=== PATIENT | female | born 2000 | race Caucasian/White ===

== ENCOUNTER 2020-05-12 03:08 | Inpatient (IN) | payer BC ==
[2020-05-12] MEDS ORDERED: Propofol 500 MG/50 ML VIAL ONE (03:28)
[2020-05-12] MEDS ORDERED: Propofol 1,000 MG/100 ML VIAL IV ONE (03:30)
[2020-05-12 03:32] LABS: Actual Bicarbonate (HCO3a) 24.7 mEq/L (22-28); Analyzer IN Cardio ER; Base Excess (BEa) -1.7 mEq/L (-2.0 to +3.0); CO2 Tension 48.5 mmHg (35.0-45.0); Calcium, Ionized (arterial) 1.11 mmol/L (1.12-1.30); Carboxyhemoglobin (COHb) 0.2 gm% (0.0-3.0); Hemoglobin (Hb) 13.1 g/dL (11.4-15.4); O2 Tension (PaO2), arterial 79.9 mmHg (80.0-100.0); Potassium - ABG Lab 3.22 mmol/L (3.70-5.30); pH, Arterial 7.33 (7.35-7.45)
[2020-05-12 03:33] LABS: Puncture Site RR
[2020-05-12 03:34] LABS: ALV-art Gradient 572.475 (0-20)
[2020-05-12 03:39] LABS: #Eosinphils 0.1 thou/uL (0.0-0.7); #Lymphocytes 2.4 thou/uL (1.20-3.40); #Monocytes 0.8 thou/uL (0.11-0.59); #Neutrophils 11.5 thou/uL (1.40-6.50); %Basophils 0.1 % (0.0-1.0); %Eosinophils 0.6 % (0.0-10.0); %Lymphocytes 15.9 % (28.0-48.0); %Monocytes 5.6 % (0.0-4.0); %Neutrophils 77.8 % (31.0-61.0); Hemoglobin 12.4 g/dL (12.0-16.0); Mean Corpuscular HGB CONC 31.7 g/dL (32.0-36.0); Mean Corpuscular Hemoglobin 26.7 pg (25.0-35.0); Mean Corpuscular Volume 84.2 fL (78.0-98.0); Mean Platelet Volume 6.8 fL (7.4-10.4); Platelet Count 457 thou/uL (130-400); RBC Distribution Width 12.8 % (11.5-14.5); Red Blood Cell (RBC) Count 4.63 mill/uL (4.00-5.20); White Blood Cell (WBC) Count 14.8 thou/uL (4.8-10.8)
[2020-05-12 03:43] LABS: BHCG - Serum Negative (NEGATIVE); Pregs Control Background? CLEAR/WHITE (CLR/WHITE); Pregs Control Bar Appear? YES (CONTROL BAR)
[2020-05-12 04:03] LABS: ALT (SGPT) 31 U/L (8-55); AST (SGOT) 29 U/L (5-34); Albumin 4.2 g/dL (3.5-5.0); Alkaline Phosphatase 115 U/L (40-100); Anion Gap 12 mmol/L (10-20); BUN (Urea Nitrogen) 11 mg/dL (7.0-18.7); Bilirubin, Total 0.3 mg/dL (0.2-1.2); CK (CPK) 176 U/L (29-168); Calc. Creatinine Clearance 0 mL/min (70-130); Calcium 8.2 mg/dL (7.8-10.44); Carbon Dioxide 27 mmol/L (22-29); Chloride 106 mmol/L (98-107); Estimated GFR-MDRD 82; Globulin 3.6 g/dL (2.4-3.5); Glucose 126 mg/dL (70-105); Potassium 3.6 mmol/L (3.5-5.1); Protein, Total 7.8 g/dL (6.0-8.3); Sodium 141 mmol/L (136-145)
[2020-05-12] MEDS ORDERED: Magnesium 2 GM/50 ML BAG (IN WATER) ONE (04:12)
[2020-05-12] MEDS ORDERED: Ventilator Sedation Protocol 1 EACH FS SCH (05:00)
[2020-05-12] MEDS ORDERED: fentaNYL Citrate/PF 2,000 MCG in Sodium Chloride 0.9% 60 ML IV SCH (05:03)
[2020-05-12] MEDS ORDERED: Fentanyl BOLUS 250 ML IVPB PRN (05:03)
[2020-05-12] MEDS ORDERED: Morphine 2 MG/ML SYRINGE SLOW IVP PRN (05:03)
[2020-05-12] MEDS ORDERED: Lorazepam 2 MG/ML VIAL SLOW IVP PRN (05:03)
[2020-05-12] MEDS ORDERED: Propofol BOLUS 1,000 MG/100 ML VIAL IV PRN (05:03)
[2020-05-12] MEDS ORDERED: DISCONTINUE PREVIOUS NARCOTIC PAIN MEDICATIONS AND BENZODIAZEPINES FS SCH (05:03)
[2020-05-12] MEDS ORDERED: Fentanyl 100 MCG/2 ML VIAL ONE ×2 (05:08→05:10)
--- NOTE | 2020-05-12 06:33 | HP ---
CHIEF COMPLAINT: Overdose. HISTORY OF PRESENT ILLNESS: Ms. Carpio is a 19-year-old female with past medical history of bipolar disorder, seizures, was brought to the emergency room, intubated. She was found unresponsive after seizure activity with nausea and vomiting. Apparently, the patient overdosed on Lamictal, ? Bupropion. ED physician discussed the case with Poison Control, who advised to monitor the patient and EKG showed a prolonged QT. The patient was given magnesium. Lab work showed a WBC count of 15.8, hemoglobin of 12.8. ABG showed pH of 7.33, pCO2 of 48, and pO2 of 79 on 100% FiO2. The patient is being admitted to the intensive care unit for further management. PAST MEDICAL HISTORY: 1. Bipolar disorder. 2. Seizures. PAST SURGICAL HISTORY: Unable to obtain. The patient is unresponsive. SOCIAL HISTORY: Unable to obtain. The patient is unresponsive. HOME MEDICATIONS: See home medication reconciliation form for updated medications. FAMILY HISTORY: Unable to obtain due to the patient is being unresponsive. REVIEW OF SYSTEMS: Unable to obtain due to the patient's medical condition. PHYSICAL EXAMINATION: GENERAL: The patient is intubated and sedated. Blood pressure is 140/100, respiratory rate is 14, oxygen saturation is 98%, pulse is 96, and temperature is 95.7. HEAD AND NECK: Normocephalic. NECK: Supple. CHEST: Fair bilateral air entry. HEART: S1 and S2. Regular. ABDOMEN: Soft. Bowel sounds present. NEUROLOGIC: Intubated and sedated. PSYCHIATRIC: Intubated and sedated. EXTREMITIES: No clubbing. No cyanosis. LABORATORY DATA: As mentioned above in history of present illness. ASSESSMENT: 1. Acute respiratory failure. 2. Drug overdose. The patient took Lamictal/bupropion. 3. Seizures. 4. Bipolar disorder. 5. Nausea and vomiting as per records, possible aspiration. PLAN: 1. Admit to ICU. 2. Continue full ventilator support. 3. Consult Pulmonary for ventilator and critical care management. 4. Keep n.p.o. 5. IV fluids. 6. Reconcile home medications. 7. DVT prophylaxis as appropriate. 8. GI prophylaxis. 9. Expected length of stay, 2 midnights or more. Case was discussed with ED physician. Job ID: [id number]
--- NOTE | 2020-05-12 07:39 | RAD ---
Exam: Chest one view HISTORY:Overdose on the appropriate on. Intubated patient. Comparison: None FINDINGS: Lines and tubes: Endotracheal tube at the level of the thoracic inlet. Cardiac silhouette: Normal Aorta: Unremarkable Pulmonary vessels: Normal Costophrenic angles: Clear LUNGS: Right upper lobe consolidation likely due to atelectasis. Pneumothorax: None Osseous abnormalities: None IMPRESSION: 1. Right upper lobe atelectasis. 2. Endotracheal tube at the level of the thoracic inlet.
--- NOTE | 2020-05-12 07:41 | CT ---
CT OF THE CHEST WITHOUT CONTRAST: COMPARISON: Chest x-ray 05/12/2020. HISTORY: Intubated patient. Medical overdose. TECHNIQUE: Multiple contiguous axial images were obtained in a CT of the chest without contrast. Sagittal and c oronal reformats were performed. FINDINGS: Atelectasis is seen in the right upper lobe and left lower lobe. No mass is seen. An endotracheal t ube is seen with its tip in good position by the isabela. The heart is normal in size. No hilar or mediastinal lymphadenopathy are appreciated on this limited noncontrast examination. The visualized subdiaphragmatic structures are unremarkable. The chest wall soft tissues and bones a re unremarkable. IMPRESSION: Right upper and lower lobe atelectasis. POS: EAA
[2020-05-12] MEDS: Propofol 1,000 MG/100 ML VIAL IV PRN ×4 (08:16→21:10)
[2020-05-12 08:35] LABS: Lactic Acid 2.4 mmol/L (0.5-2.2)
[2020-05-12] MEDS: Enoxaparin Sodium 40 MG/0.4 ML SYRINGE SC SCH (08:39)
[2020-05-12] MEDS: Piperacillin/Tazobactam 3.375 GM in Sodium Chloride 0.9% 100 ML IVPB SCH ×4 (08:39→21:11)
[2020-05-12] MEDS: Famotidine/PF 20 mg/2ml Vial SLOW IVP SCH ×2 (08:39→21:10)
[2020-05-12] MEDS: Sodium Chloride 0.9% 1,000 ML IV SCH ×3 (13:16→18:09)
[2020-05-12 13:46] LABS: Acetaminophen Less than 6.0 mcg/mL (10.0-30.0); Salicylate Less than 8.0 mg/dL (15.0-30.0)
--- NOTE | 2020-05-12 14:25 | CON ---
DATE OF CONSULTATION: HISTORY OF PRESENT ILLNESS: Julianna Carpio is a 19-year-old female with a longstanding history of mental problems. She is bipolar. Her mother, stepmother both at the bedside. She apparently took an unknown quantity of lamotrigine and bupropion. She came to the ER where she was confused, nausea, vomiting, uncontrollable. She was intubated, pressured airways. Initially chest x-ray showed her right upper lung was atelectatic. CAT scan confirmed this. PAST MEDICAL HISTORY: Information from her mother says past medical history pertinent for longstanding history of bipolar disorder, hypothyroidism. MEDICATIONS: 1. Bupropion 300 mg once a day. 2. Zoloft 100 mg a day. 3. Synthroid 150 a day. 4. Hydroxyzine 25 three times a day. 5. Lamictal 150 two a day. PREVIOUS SURGERIES: Tubal ligation. ALLERGIES: APPARENTLY NONE. SOCIAL HISTORY: Tobacco, none. Drugs, none. REVIEW OF SYSTEMS: As per the family, negative. Sedation was withheld. She became agitated. PHYSICAL EXAMINATION: VITAL SIGNS: Pulse 97, blood pressure 118/60, saturations 100%, respiratory 17. CHEST: Decreased breath sounds, no wheezing. CARDIAC: Normal S1, S2. No gallops. ABDOMEN: No masses. LABORATORY DATA: White count 05808, H and H are 12 and 39, platelet count is normal. PO2 of 79, pCO2 of . Lytes are normal. Lactic acid normal. IMPRESSION: Status post overdose of Lamictal and bupropion , right upper lung atelectasis probably from aspiration. I agree with present antibiotics, neb treatment, supportive care. We will start weaning tomorrow. She needs inpatient psych care. 45-minute critical time. Job ID: [id number]
[2020-05-12] MEDS ORDERED: risperiDONE 0.25 MG TAB PO SCH (17:30)
[2020-05-12] MEDS: risperiDONE 0.25 MG TAB PO SCH (21:11)
[2020-05-13] MEDS: Propofol 1,000 MG/100 ML VIAL IV PRN ×3 (00:25→07:56)
[2020-05-13] MEDS: Piperacillin/Tazobactam 3.375 GM in Sodium Chloride 0.9% 100 ML IVPB SCH ×4 (02:36→20:01)
[2020-05-13] MEDS: Sodium Chloride 0.9% 1,000 ML IV SCH ×4 (03:20→20:02)
[2020-05-13 04:02] LABS: Band 1 % (5-11); Eosinophils 1 % (0-10); Hemoglobin 10.7 g/dL (12.0-16.0); Hypochromia SLIGHT = 6-15 cells (100X) (0-5/hpf); Lymphocytes 15 % (28-48); MDiff Complete? YES; Mean Corpuscular HGB CONC 32.8 g/dL (32.0-36.0); Mean Corpuscular Hemoglobin 28.1 pg (25.0-35.0); Mean Corpuscular Volume 85.7 fL (78.0-98.0); Mean Platelet Volume 6.8 fL (7.4-10.4); Monocytes 9 % (0-4); Neutrophil 74 % (31-61); Platelet Count 406 thou/uL (130-400); Platelet Morphology Comment Appears Increased; RBC Distribution Width 12.9 % (11.5-14.5); White Blood Cell (WBC) Count 14.1 thou/uL (4.8-10.8)
[2020-05-13 04:05] LABS: Anion Gap 12 mmol/L (10-20); BUN (Urea Nitrogen) 9 mg/dL (7.0-18.7); Calc. Creatinine Clearance 232 mL/min (70-130); Carbon Dioxide 20 mmol/L (22-29); Chloride 107 mmol/L (98-107); Estimated GFR-MDRD Greater than 90; Glucose 120 mg/dL (70-105); Potassium 3.6 mmol/L (3.5-5.1); Sodium 135 mmol/L (136-145)
[2020-05-13 07:04] LABS: Actual Bicarbonate (HCO3a) 21.1 mEq/L (22-28); Base Excess (BEa) -4.1 mEq/L (-2.0 to +3.0); Calcium, Ionized (arterial) 1.15 mmol/L (1.12-1.30); Carboxyhemoglobin (COHb) 0.3 gm% (0.0-3.0); Hemoglobin (Hb) 11.1 g/dL (11.4-15.4); O2 Tension (PaO2), arterial 94.2 mmHg (80.0-100.0); Potassium - ABG Lab 3.67 mmol/L (3.70-5.30); pH, Arterial 7.35 (7.35-7.45)
[2020-05-13 07:14] LABS: Puncture Site RRAD
--- NOTE | 2020-05-13 08:16 | RAD ---
SINGLE VIEW OF THE CHEST: COMPARISON: 05/12/2020. HISTORY: Ventilated patient with respiratory failure. FINDINGS: A single view of the chest shows a normal-size cardiomediastinal silhouette. The endotracheal tube a nd NG tube are unchanged in position. There is improved aeration in the right apex with streaky atel ectasis in the right apex. IMPRESSION: Improved right apical atelectasis. POS: EAA
[2020-05-13] MEDS: Famotidine/PF 20 mg/2ml Vial SLOW IVP SCH ×2 (08:30→20:01)
[2020-05-13] MEDS: Enoxaparin Sodium 40 MG/0.4 ML SYRINGE SC SCH (08:31)
[2020-05-13] MEDS ORDERED: DC Sedation Protocol FS ONE (08:39)
[2020-05-13] MEDS: Ziprasidone 20 MG VIAL IM PRN ×2 (08:56→13:09)
[2020-05-13] MEDS ORDERED: Tocilizumab 400 MG in Sodium Chloride 0.9% 80 ML IV SCH (09:00)
[2020-05-13] MEDS: risperiDONE 0.25 MG TAB PO SCH ×2 (09:00→20:02)
[2020-05-13] MEDS: Levothyroxine 150 MCG TAB PO SCH (09:00)
[2020-05-13] MEDS: Bupropion 150 MG XL TAB PO SCH (09:10)
[2020-05-13] MEDS: lamoTRIgine 100 MG TAB PO SCH ×2 (09:10→20:01)
--- NOTE | 2020-05-13 09:25 | PRG ---
DATE OF SERVICE: 05/13/2020 SUBJECTIVE: This morning, she was extubated because she is extremely agitated on CPAP. X-ray showed the right upper lung atelectasis has improved. Once the tube was removed, she was thrashing and kicking and punching. OBJECTIVE: VITAL SIGNS: Sats are 92% on 5, respiratory rate 21, pulse 94, and blood pressure . CHEST: Bilateral rhonchi. CARDIAC: Sinus tach. ABDOMEN: Massive. LABORATORY DATA: White count 14,000, hemoglobin and hematocrit 10 and 30, platelet count is 406. PO2 is 94, pCO2 of prior to extubation. Lytes are normal. ASSESSMENT: Bipolar disorder, major encephalopathy, right upper lung atelectasis, morbid obesity, and hypothyroidism. I am going to start home medicine. Geodon has been initiated. Supportive care, PT. Family wants to be transferred to inpatient facility at someplace. One-half hour of critical time. Job ID: [id number]
[2020-05-13] MEDS ORDERED: Ondansetron PF 4 MG/2 ML Vial IVP PRN (15:18)
[2020-05-13] MEDS: Lorazepam 2 MG/ML VIAL SLOW IVP SCH ×2 (16:54→17:01)
--- NOTE | 2020-05-13 18:32 | PDOC.HOSPP ---
- Subjective Encounter Date: 05/13/20 Encounter Time: 10:00 Subjective: Pt seen for followup re: drug overdose. Pt is not speaking, unable to ontain ROS. - Objective Vital Signs & Weight: Vital Signs (12 hours) Temp Pulse Resp Pulse Ox 05/13/20 16:00 99.0 F 05/13/20 12:41 122 H 12 93 L 05/13/20 12:00 98.8 F 95 05/13/20 08:16 25 H 05/13/20 08:00 98.1 F 21 H 92 L 05/13/20 06:40 94 21 H 100 Weight Weight 296 lb 4.82 oz Most Recent Monitor Data Heart Rate from ECG 102 NIBP 137/88 NIBP BP-Mean 104 Respiration from ECG 24 SpO2 99 I&O: 05/12/20 05/13/20 05/14/20 06:59 06:59 06:59 Intake Total 3731.6 1050.2 Output Total 1786 949 Balance 1945.6 101.2 Result Diagrams: 05/13/20 03:34 05/13/20 03:34 Additional Labs: Labs and MARs reviewed by me EKG Reviewed by me: Yes (Tele: NSR) Hospitalist ROS - Review of Systems ROS unobtainable: due to mental status - Medication Medications: Active Medications Generic Name Dose Route Start Last Admin Trade Name Freq PRN Reason Stop Dose Admin Albuterol/Ipratropium 3 ml 05/12/20 13:00 05/13/20 12:41 Duoneb NEB 3 ml [id number] HOWARD Administration Bupropion HCl 300 mg 05/13/20 09:00 05/13/20 09:10 Wellbutrin Xl PO Not Given QAM HOWARD Enoxaparin Sodium 40 mg 05/12/20 09:00 05/13/20 08:31 Lovenox SC 40 mg 0900 HOWARD Administration Famotidine 20 mg 05/12/20 09:00 05/13/20 08:30 Pepcid SLOW IVP 20 mg Q12HR HOWARD Administration Sodium Chloride 1,000 mls @ 100 mls/hr 05/12/20 05:00 05/13/20 12:48 Normal Saline 0.9% IV 1,000 mls .Q10H HOWARD Administration Piperacillin Sod/Tazobactam 100 mls @ 200 mls/hr 05/12/20 14:00 05/13/20 13: 47 Sod 3.375 gm/ Sodium Chloride IVPB 100 mls 0200,0800,1400,2000 HOWARD Administration Lamotrigine 150 mg 05/13/20 09:00 05/13/20 09:10 Lamictal PO Not Given BID HOWARD Levothyroxine Sodium 150 mcg 05/13/20 09:00 05/13/20 09:00 Synthroid PO Not Given QAM HOWARD Lorazepam 0.25 mg 05/13/20 17:00 05/13/20 17:01 Ativan SLOW IVP 05/13/20 19:00 0.25 mg NOW HOWARD Administration Ondansetron HCl 4 mg 05/13/20 15:18 05/13/20 15:26 Zofran IVP 4 mg Q6H PRN Administration Nausea/Vomiting Risperidone 0.25 mg 05/12/20 21:00 05/13/20 09:00 Risperidone PO Not Given BID HOWARD Sertraline HCl 100 mg 05/13/20 09:00 05/13/20 09:00 Zoloft PO Not Given DAILY HOWARD Ziprasidone 20 mg 05/13/20 08:38 05/13/20 13:09 Geodon IM 20 mg Q4H PRN Administration Agitation - Exam General - other findings: Morbid obesity Eye: anicteric sclera ENT: normocephalic atraumatic Neck: supple Heart: RRR Respiratory: CTAB Gastrointestinal: soft, normal bowel sounds Musculoskeletal: no muscle wasting Psychiatric: lethargic Hosp A/P (1) Drug overdose Code(s): T50.901A - POISONING BY UNSP DRUG/MEDS/BIOL SUBST, ACCIDENTAL, INIT Status: Acute (2) Acute respiratory failure with hypoxia Code(s): J96.01 - ACUTE RESPIRATORY FAILURE WITH HYPOXIA Status: Acute (3) Seizure Code(s): R56.9 - UNSPECIFIED CONVULSIONS Status: Acute (4) Hyponatremia Code(s): E87.1 - HYPO-OSMOLALITY AND HYPONATREMIA Status: Acute (5) Aspiration into airway Code(s): T17.908A - UNSP FB IN RESP TRACT, PART UNSP CAUSING OTH INJURY, INIT Status: Acute - Plan s/p extubation earlier today. Pt continues to have episodes of agitation. Continue IV Zosyn for aspiration. Geodon for agitation.
[2020-05-13] MEDS ORDERED: Haloperidol Lactate 5 MG/ML VIAL IM SCH (18:45)
[2020-05-13] MEDS ORDERED: Haloperidol Lactate 5 MG/ML VIAL SLOW IVP SCH (22:00)
[2020-05-14] MEDS: Piperacillin/Tazobactam 3.375 GM in Sodium Chloride 0.9% 100 ML IVPB SCH ×4 (01:56→19:23)
[2020-05-14] MEDS: Haloperidol Lactate 5 MG/ML VIAL SLOW IVP PRN ×13 (03:25→23:21)
[2020-05-14] MEDS: Sodium Chloride 0.9% 1,000 ML IV SCH ×2 (07:48→19:28)
--- NOTE | 2020-05-14 08:23 | RAD ---
Exam: Chest one view HISTORY:Ventilated patient. Respiratory distress. Comparison: 05/13/2020 FINDINGS: Lines and tubes: Interval removal endotracheal and nasogastric tube. Cardiac silhouette: Normal Aorta: Unremarkable Pulmonary vessels: Normal Costophrenic angles: Clear LUNGS: Persistent opacification in the right upper lobe. Pneumothorax: None Osseous abnormalities: None IMPRESSION: 1. Interval removal of endotracheal and nasogastric tube. 2. Persistent opacification of the right upper lobe
[2020-05-14] MEDS: Enoxaparin Sodium 40 MG/0.4 ML SYRINGE SC SCH (08:58)
[2020-05-14] MEDS: Famotidine/PF 20 mg/2ml Vial SLOW IVP SCH ×2 (08:59→19:23)
[2020-05-14] MEDS: Bupropion 150 MG XL TAB PO SCH (10:07)
[2020-05-14] MEDS: Levothyroxine 150 MCG TAB PO SCH (10:07)
[2020-05-14] MEDS: lamoTRIgine 100 MG TAB PO SCH ×2 (10:07→22:41)
[2020-05-14] MEDS: risperiDONE 0.25 MG TAB PO SCH ×2 (10:07→22:41)
[2020-05-14] MEDS: Lorazepam 2 MG/ML VIAL IM SCH ×2 (12:09→23:21)
--- NOTE | 2020-05-14 12:33 | PRG ---
DATE OF SERVICE: 05/14/2020 SUBJECTIVE: Julianna Carpio is still agitated. She is on Precedex drip. She is receiving Haldol intravenously every hour. We will add Ativan twice a day intramuscularly, so that she in theory would not have any dystonic effects. Once she is calmed, we can cut back the frequency of the Haldol. The mom answered all her questions. She is not having any respiratory issues. Her hemodynamics are stable. OBJECTIVE: Lungs: Clear. HEART: Regular rhythm. ABDOMEN: Soft. IMPRESSION: She still has some atelectasis of the right upper lobe secondary to endotracheal tube placement. Once she is up and moving around, I suspect that will improve. She is on Zosyn. CRITICAL CARE TIME: 30 minutes. Job ID: [id number]
--- NOTE | 2020-05-14 17:21 | PDOC.HOSPP ---
- Subjective Encounter Date: 05/14/20 Encounter Time: 11:00 Subjective: Pt seen for followup re: drug overdose. Nonverbal, occasionally screaming, unable to complete ROS. - Objective Vital Signs & Weight: Vital Signs (12 hours) Temp Pulse Resp Pulse Ox 05/14/20 16:00 98.7 F 05/14/20 12:50 85 19 96 05/14/20 12:00 99.0 F 05/14/20 08:00 99.2 F 98 05/14/20 07:42 87 17 96 Weight Weight 288 lb 12.889 oz Most Recent Monitor Data Heart Rate from ECG 91 NIBP 117/83 NIBP BP-Mean 94 Respiration from ECG 14 SpO2 100 I&O: 05/13/20 05/14/20 05/15/20 06:59 06:59 06:59 Intake Total 3731.6 2712.7 Output Total 1786 2269 250 Balance 1945.6 443.7 -250 Result Diagrams: 05/13/20 03:34 05/13/20 03:34 Additional Labs: Labs and MARs reviewed by me EKG Reviewed by me: Yes (Tele: NSR) Hospitalist ROS - Review of Systems ROS unobtainable: due to mental status - Medication Medications: Active Medications Generic Name Dose Route Start Last Admin Trade Name Freq PRN Reason Stop Dose Admin Albuterol/Ipratropium 3 ml 05/12/20 13:00 05/14/20 12:50 Duoneb NEB 3 ml [id number] HOWARD Administration Bupropion HCl 300 mg 05/13/20 09:00 05/14/20 10:07 Wellbutrin Xl PO Not Given QAM HOWARD Enoxaparin Sodium 40 mg 05/12/20 09:00 05/14/20 08:58 Lovenox SC 40 mg 0900 HOWARD Administration Famotidine 20 mg 05/12/20 09:00 05/14/20 08:59 Pepcid SLOW IVP 20 mg Q12HR HOWARD Administration Haloperidol Lactate 10 mg 05/13/20 23:00 05/14/20 16:08 Haldol SLOW IVP 10 mg Q1H PRN Administration Anxiety/Agitation Sodium Chloride 1,000 mls @ 100 mls/hr 05/12/20 05:00 05/14/20 07:48 Normal Saline 0.9% IV 1,000 mls .Q10H HOWARD Administration Piperacillin Sod/Tazobactam 100 mls @ 200 mls/hr 05/12/20 14:00 05/14/20 13: 52 Sod 3.375 gm/ Sodium Chloride IVPB 100 mls 0200,0800,1400,2000 HOWARD Administration Dexmedetomidine HCl 400 mcg/ 100 mls @ 0 mls/hr 05/14/20 02:45 05/14/20 07:50 Sodium Chloride IVPB 100 mls INF HOWARD Administration Protocol Titrate Lamotrigine 150 mg 05/13/20 09:00 05/14/20 10:07 Lamictal PO Not Given BID HOWARD Levothyroxine Sodium 150 mcg 05/13/20 09:00 05/14/20 10:07 Synthroid PO Not Given QAM HOWARD Lorazepam 1 mg 05/14/20 12:00 05/14/20 12:09 Ativan IM 1 mg 1200,2359 HOWARD Administration Ondansetron HCl 4 mg 05/13/20 15:18 05/13/20 15:26 Zofran IVP 4 mg Q6H PRN Administration Nausea/Vomiting Risperidone 0.25 mg 05/12/20 21:00 05/14/20 10:07 Risperidone PO Not Given BID HOWARD Sertraline HCl 100 mg 05/13/20 09:00 05/14/20 10:07 Zoloft PO Not Given DAILY HOWARD - Exam ENT: normocephalic atraumatic, moist mucosa Neck: supple, no lymphadenopathy Heart: RRR, no gallops Respiratory: CTAB Gastrointestinal: soft, non-tender Extremities: no cyanosis Skin: no lesions Psychiatric - other findings: Unable to assess Hosp A/P (1) Drug overdose Code(s): T50.901A - POISONING BY UNSP DRUG/MEDS/BIOL SUBST, ACCIDENTAL, INIT Status: Acute (2) Seizure Code(s): R56.9 - UNSPECIFIED CONVULSIONS Status: Acute (3) Acute respiratory failure with hypoxia Code(s): J96.01 - ACUTE RESPIRATORY FAILURE WITH HYPOXIA Status: Acute (4) Hyponatremia Code(s): E87.1 - HYPO-OSMOLALITY AND HYPONATREMIA Status: Acute (5) Aspiration into airway Code(s): T17.908A - UNSP FB IN RESP TRACT, PART UNSP CAUSING OTH INJURY, INIT Status: Acute - Plan Episodes of agitation. s/p extubation yesterday. Pt is on IV Zosyn for aspiration. Haldol/Precedex for agitation. Hyponatremia mild, likely asymptomatic.
[2020-05-15] MEDS: Haloperidol Lactate 5 MG/ML VIAL SLOW IVP PRN ×9 (00:37→14:09)
[2020-05-15] MEDS: Piperacillin/Tazobactam 3.375 GM in Sodium Chloride 0.9% 100 ML IVPB SCH ×4 (02:10→21:50)
[2020-05-15 03:58] LABS: #Eosinphils 0.1 thou/uL (0.0-0.7); #Lymphocytes 1.7 thou/uL (1.20-3.40); #Monocytes 0.8 thou/uL (0.11-0.59); #Neutrophils 9.3 thou/uL (1.40-6.50); %Basophils 0.3 % (0.0-1.0); %Eosinophils 0.5 % (0.0-10.0); %Lymphocytes 14.4 % (28.0-48.0); %Monocytes 6.6 % (0.0-4.0); %Neutrophils 78.2 % (31.0-61.0); Hemoglobin 9.4 g/dL (12.0-16.0); Mean Corpuscular HGB CONC 30.3 g/dL (32.0-36.0); Mean Corpuscular Hemoglobin 26.3 pg (25.0-35.0); Mean Corpuscular Volume 86.8 fL (78.0-98.0); Platelet Count 383 thou/uL (130-400); RBC Distribution Width 12.9 % (11.5-14.5); Red Blood Cell (RBC) Count 3.56 mill/uL (4.00-5.20); White Blood Cell (WBC) Count 11.9 thou/uL (4.8-10.8)
[2020-05-15 04:17] LABS: Anion Gap 15 mmol/L (10-20); BUN (Urea Nitrogen) 7 mg/dL (7.0-18.7); Calc. Creatinine Clearance 273 mL/min (70-130); Calcium 7.8 mg/dL (7.8-10.44); Carbon Dioxide 19 mmol/L (22-29); Chloride 113 mmol/L (98-107); Estimated GFR-MDRD Greater than 90; Glucose 88 mg/dL (70-105); Potassium 3.6 mmol/L (3.5-5.1); Sodium 143 mmol/L (136-145)
[2020-05-15] MEDS: Sodium Chloride 0.9% 1,000 ML IV SCH ×2 (06:45→19:10)
[2020-05-15] MEDS: Famotidine/PF 20 mg/2ml Vial SLOW IVP SCH ×2 (08:27→21:50)
[2020-05-15] MEDS: lamoTRIgine 100 MG TAB PO SCH ×2 (08:27→22:02)
[2020-05-15] MEDS: Enoxaparin Sodium 40 MG/0.4 ML SYRINGE SC SCH (08:27)
[2020-05-15] MEDS: Bupropion 150 MG XL TAB PO SCH (08:27)
[2020-05-15] MEDS: risperiDONE 0.25 MG TAB PO SCH ×2 (08:28→22:02)
[2020-05-15] MEDS: Levothyroxine 150 MCG TAB PO SCH (08:28)
--- NOTE | 2020-05-15 08:30 | RAD ---
Exam: Chest one view HISTORY:Respiratory distress. Ventilated patient. Comparison: 05/14/2020 FINDINGS: Cardiac silhouette: Normal Aorta: Unremarkable Pulmonary vessels: Normal Costophrenic angles: Clear LUNGS: Persistent opacification of the right upper lobe. Pneumothorax: None Osseous abnormalities: None IMPRESSION: No significant interval change. Persistent opacification of the right upper lobe
[2020-05-15] MEDS: Lorazepam 2 MG/ML VIAL IM SCH (13:02)
--- NOTE | 2020-05-15 15:03 | PRG ---
DATE OF SERVICE: 05/15/2020 SUBJECTIVE: Ms. Carpio is still intermittently uncooperative. She is still requiring soft restraints. OBJECTIVE: VITAL SIGNS: Heart rate is 110, respiratory rate is 25, FiO2 is 40%, and oximetry is in the high 90s. LUNGS: Unchanged. HEART: Unchanged. ABDOMEN: Unchanged. PLAN: She will continue to be monitored in the intermediate care unit. Continue to have p.r.n. Haldol and IV lorazepam twice a day until she is stable enough to go to an inpatient facility. Job ID: [id number]
[2020-05-15] MEDS ORDERED: Benztropine Mesylate 2 MG/2 ML VIAL IM PRN (15:29)
--- NOTE | 2020-05-15 15:35 | PDOC.HOSPP ---
- Subjective Encounter Date: 05/15/20 Encounter Time: 10:00 Subjective: Pt seen for followup for overdose. Sleepy but arousable, not answering questions, could not complete ROS. - Objective Vital Signs & Weight: Vital Signs (12 hours) Temp Pulse Resp Pulse Ox 05/15/20 12:57 110 H 25 H 95 05/15/20 11:29 98.6 F 05/15/20 08:01 103 H 29 H 100 05/15/20 08:00 99.4 F 05/15/20 07:45 100 05/15/20 04:00 99.3 F Weight Weight 294 lb 1.546 oz Most Recent Monitor Data Heart Rate from ECG 119 NIBP 130/85 NIBP BP-Mean 100 Respiration from ECG 23 SpO2 97 I&O: 05/14/20 05/15/20 05/16/20 06:59 06:59 06:59 Intake Total 2712.7 2902 Output Total 2269 980 350 Balance 443.7 1922 -350 Result Diagrams: 05/15/20 03:28 05/15/20 03:28 Additional Labs: Labs and MARs reviewed by mn Hospitalist ROS - Review of Systems ROS unobtainable: due to mental status - Medication Medications: Active Medications Generic Name Dose Route Start Last Admin Trade Name Freq PRN Reason Stop Dose Admin Albuterol/Ipratropium 3 ml 05/12/20 13:00 05/15/20 12:57 Duoneb NEB 3 ml [id number] HOWARD Administration Bupropion HCl 300 mg 05/13/20 09:00 05/15/20 08:27 Wellbutrin Xl PO Not Given QAM HOWARD Enoxaparin Sodium 40 mg 05/12/20 09:00 05/15/20 08:27 Lovenox SC 40 mg 0900 HOWARD Administration Famotidine 20 mg 05/12/20 09:00 05/15/20 08:27 Pepcid SLOW IVP 20 mg Q12HR HOWARD Administration Haloperidol Lactate 10 mg 05/13/20 23:00 05/15/20 14:09 Haldol SLOW IVP 10 mg Q1H PRN Administration Anxiety/Agitation Sodium Chloride 1,000 mls @ 100 mls/hr 05/12/20 05:00 05/15/20 06:45 Normal Saline 0.9% IV Not Given .Q10H HOWARD Piperacillin Sod/Tazobactam 100 mls @ 200 mls/hr 05/12/20 14:00 05/15/20 14: 04 Sod 3.375 gm/ Sodium Chloride IVPB 100 mls 0200,0800,1400,2000 HOWARD Administration Dexmedetomidine HCl 400 mcg/ 100 mls @ 0 mls/hr 05/14/20 02:45 05/15/20 02:55 Sodium Chloride IVPB 100 mls INF HOWARD Administration Protocol Titrate Lamotrigine 150 mg 05/13/20 09:00 05/15/20 08:27 Lamictal PO Not Given BID HOWARD Levothyroxine Sodium 150 mcg 05/13/20 09:00 05/15/20 08:28 Synthroid PO Not Given QAM HOWARD Lorazepam 1 mg 05/14/20 12:00 05/15/20 13:02 Ativan IM 1 mg 1200,2359 HOWARD Administration Ondansetron HCl 4 mg 05/13/20 15:18 05/13/20 15:26 Zofran IVP 4 mg Q6H PRN Administration Nausea/Vomiting Risperidone 0.25 mg 05/12/20 21:00 05/15/20 08:28 Risperidone PO Not Given BID HOWARD Sertraline HCl 100 mg 05/13/20 09:00 05/15/20 08:28 Zoloft PO Not Given DAILY HOWARD - Exam General - other findings: Morbid obesity ENT: normocephalic atraumatic Neck: supple Heart: RRR Respiratory: CTAB Gastrointestinal: soft, normal bowel sounds Skin: no rashes Musculoskeletal: no muscle wasting Psychiatric - other findings: Unable to assess Hosp A/P (1) Drug overdose Code(s): T50.901A - POISONING BY UNSP DRUG/MEDS/BIOL SUBST, ACCIDENTAL, INIT Status: Acute (2) Seizure Code(s): R56.9 - UNSPECIFIED CONVULSIONS Status: Acute (3) Aspiration into airway Code(s): T17.908A - UNSP FB IN RESP TRACT, PART UNSP CAUSING OTH INJURY, INIT Status: Acute (4) Acute respiratory failure with hypoxia Code(s): J96.01 - ACUTE RESPIRATORY FAILURE WITH HYPOXIA Status: Resolved (5) Hyponatremia Code(s): E87.1 - HYPO-OSMOLALITY AND HYPONATREMIA Status: Resolved - Plan continue antibiotics Pt reportedly had episodes of extrapyramidal symptoms, add PRN IM Cogentin. Continue IV Zosyn for aspiration. Agitation improved. Hyponatremia resolved.
[2020-05-16] MEDS: Lorazepam 2 MG/ML VIAL IM SCH ×3 (01:18→23:38)
[2020-05-16] MEDS: Piperacillin/Tazobactam 3.375 GM in Sodium Chloride 0.9% 100 ML IVPB SCH ×2 (02:42→10:27)
[2020-05-16 03:22] LABS: #Basophils 0.1 thou/uL (0.0-0.2); #Eosinphils 0.1 thou/uL (0.0-0.7); #Lymphocytes 1.8 thou/uL (1.20-3.40); #Monocytes 0.9 thou/uL (0.11-0.59); #Neutrophils 11.2 thou/uL (1.40-6.50); %Basophils 0.5 % (0.0-1.0); %Eosinophils 0.6 % (0.0-10.0); %Lymphocytes 12.8 % (28.0-48.0); %Monocytes 6.6 % (0.0-4.0); %Neutrophils 79.5 % (31.0-61.0); Hemoglobin 10.4 g/dL (12.0-16.0); Mean Corpuscular HGB CONC 32.1 g/dL (32.0-36.0); Mean Platelet Volume 6.9 fL (7.4-10.4); Platelet Count 419 thou/uL (130-400); RBC Distribution Width 13.1 % (11.5-14.5); Red Blood Cell (RBC) Count 3.71 mill/uL (4.00-5.20); White Blood Cell (WBC) Count 14.1 thou/uL (4.8-10.8)
[2020-05-16 03:41] LABS: Anion Gap 18 mmol/L (10-20); BUN (Urea Nitrogen) Less than 4 mg/dL (7.0-18.7); Calc. Creatinine Clearance 315 mL/min (70-130); Calcium 8.2 mg/dL (7.8-10.44); Carbon Dioxide 15 mmol/L (22-29); Chloride 112 mmol/L (98-107); Estimated GFR-MDRD Greater than 90; Glucose 74 mg/dL (70-105); Potassium 3.6 mmol/L (3.5-5.1); Sodium 141 mmol/L (136-145)
[2020-05-16] MEDS: Sodium Chloride 0.9% 1,000 ML IV SCH ×2 (06:52→10:29)
[2020-05-16] MEDS ORDERED: Haloperidol Lactate 5 MG/ML VIAL SLOW IVP PRN (09:12)
--- NOTE | 2020-05-16 09:46 | PRG ---
DATE OF SERVICE: 05/16/2020 SUBJECTIVE: This morning, she is less agitated. OBJECTIVE: VITAL SIGNS: Pulse 100, respirations 29, temperature is 98. She is on high-flow. Blood pressure 150/93. CHEST: Decreased breath sounds. Bilateral rhonchi. CARDIAC: Normal S1 and S2. No gallops. ABDOMEN: No masses. LABORATORY DATA: Lytes are normal. White count 14,000. IMPRESSION: Respiratory failure, bipolar/manic depression, seizure, aspiration pneumonia, and right lobe atelectasis. PLAN: Switch over to oral antibiotics. EzPAP. Neb treatments. PT. Eventually, placement in inpatient [facility]. We will follow. Job ID: [id number]
[2020-05-16] MEDS: Bupropion 150 MG XL TAB PO SCH (09:57)
[2020-05-16] MEDS: lamoTRIgine 100 MG TAB PO SCH ×2 (09:57→21:27)
[2020-05-16] MEDS: risperiDONE 0.25 MG TAB PO SCH ×2 (09:58→21:27)
[2020-05-16] MEDS: hydrOXYzine 25 MG TAB PO SCH ×3 (10:25→21:27)
[2020-05-16] MEDS: Famotidine/PF 20 mg/2ml Vial SLOW IVP SCH ×2 (10:27→21:24)
[2020-05-16] MEDS: Levothyroxine 150 MCG TAB PO SCH (10:27)
[2020-05-16] MEDS: Enoxaparin Sodium 40 MG/0.4 ML SYRINGE SC SCH (10:27)
--- NOTE | 2020-05-16 14:28 | PDOC.PALCO ---
Palliative Care Consult - Consult Details Requesting Physician: Dr Garza Reason for Consult: family support Family Members Present: Step Mom - Pertinent HPI 19 year old female who had an altered mental status in the home setting, EMS was called and patient was found to have seizure activity, vomiting, and a GCS of 8. She was intubated and transported to the emergency room for further evaluation. It was identified she had overdosed on her bupropion and lamotrigine. Known psychiatric history including bipolar disorder. She was admitted to CCU for higher level of care, subsequent transition to IMCU after extubation. Step mom and sitter at bedside. - Social History Smoking Status: Unknown if ever smoked Living Situation: with family/parents - Medications MAR Reviewed: Yes - Allergies Allergies/Adverse Reactions: Allergies Allergy/AdvReac Type Severity Reaction Status Date / Time No Known Drug Allergies Allergy Verified 05/12/20 14:36 - Subjective lethargic. Able to intermittently carry on conversation with redirection. Continues to drift to sleep, arousable. - ROS Non Response: due to mental status - Objective Vital Signs: Vital Signs - Most Recent Temp Pulse Resp BP Pulse Ox 98.6 F 110 H 20 165/101 H 97 05/16/20 12:01 05/16/20 12:58 05/16/20 12:58 05/16/20 11:30 05/16/20 12:58 Palliative Performance Scale: 30 - Physical Exam Constitutional: confusion, ill appearing HEENT: EOMI, moist MMs, sclera anicteric Respiratory: no wheezing, unlabored breathing Cardiovascular: RRR Gastrointestinal: soft, non-tender Genitourinary: pereira catheter Musculoskeletal: no cyanosis, no clubbing Neurology: moves all 4 limbs, no focal deficits Skin: cap refill <2 seconds, no rash Deviation from normal: Oriented to self and people. Lethargic - Problem List (1) Palliative care encounter Code(s): Z51.5 - ENCOUNTER FOR PALLIATIVE CARE Current Visit: Yes Status: Acute (2) Drug overdose Code(s): T50.901A - POISONING BY UNSP DRUG/MEDS/BIOL SUBST, ACCIDENTAL, INIT Current Visit: Yes Status: Acute (3) Acute respiratory failure with hypoxia Code(s): J96.01 - ACUTE RESPIRATORY FAILURE WITH HYPOXIA Current Visit: Yes Status: Resolved - Plan/Recommendations Plan: met with patient and step mom. Short life review. Patient enjoys her animals ( Chickens, ducks, a cat and dog) plants (succulents and elephant ears). Emotional support and therapeutic listening. Discussed evaluation by MR for inpatient stay after she becomes more alert. Step Mom hopeful. Please also refer to Nicole Wylie RNseafood clerk Notes in note section [50] minutes spent on this encounter with >50% of the time in counseling and coordination of care. Thank you for this very appropriate consult.
--- NOTE | 2020-05-16 19:42 | PDOC.HOSPP ---
- Subjective Encounter Date: 05/16/20 Encounter Time: 12:10 Subjective: Pt seen for followup re: overdose. Awake, not speaking, could not obtain ROS. - Objective Vital Signs & Weight: Vital Signs (12 hours) Temp Pulse Pulse Pulse Resp BP BP 05/16/20 19:39 98.6 F 05/16/20 18:55 104 H 18 05/16/20 15:00 98.2 F 05/16/20 12:58 110 H 20 05/16/20 12:01 98.6 F 05/16/20 11:30 115 H 101 H 165/101 H 159/87 H 05/16/20 08:03 05/16/20 08:00 100 29 H Pulse Ox Pulse Ox Pulse Ox 05/16/20 19:39 05/16/20 18:55 96 05/16/20 15:00 05/16/20 12:58 97 05/16/20 12:01 05/16/20 11:30 99 98 05/16/20 08:03 98 05/16/20 08:00 98 Weight Admit Weight 289 lb 3.944 oz Weight 289 lb 4.8 oz Most Recent Monitor Data Heart Rate from ECG 101 NIBP 173/105 NIBP BP-Mean 127 Respiration from ECG 22 SpO2 95 I&O: 05/15/20 05/16/20 05/17/20 06:59 06:59 06:59 Intake Total 2902 1100 Output Total 980 2550 1300 Balance 4316 -8428 -9323 Result Diagrams: 05/16/20 03:06 05/16/20 03:06 Additional Labs: Labs and MARs reviewed by me EKG Reviewed by me: Yes (Tele: NSR) Hospitalist ROS - Review of Systems ROS unobtainable: due to mental status - Medication Medications: Active Medications Generic Name Dose Route Start Last Admin Trade Name Freq PRN Reason Stop Dose Admin Albuterol/Ipratropium 3 ml 05/16/20 13:00 05/16/20 18:55 Duoneb EZPAP 3 ml [id number] HOWARD Administration Bupropion HCl 300 mg 05/13/20 09:00 05/16/20 09:57 Wellbutrin Xl PO Not Given QAM HOWARD Enoxaparin Sodium 40 mg 05/12/20 09:00 05/16/20 10:27 Lovenox SC 40 mg 0900 HOWARD Administration Famotidine 20 mg 05/12/20 09:00 05/16/20 10:27 Pepcid SLOW IVP 20 mg Q12HR HOWARD Administration Hydroxyzine HCl 25 mg 05/16/20 09:00 05/16/20 16:23 Atarax PO Not Given TID HOWARD Sodium Chloride 1,000 mls @ 50 mls/hr 05/16/20 09:15 05/16/20 10:29 Normal Saline 0.9% IV Not Given .Q20H HOWARD Lamotrigine 150 mg 05/13/20 09:00 05/16/20 09:57 Lamictal PO Not Given BID HOWARD Levothyroxine Sodium 150 mcg 05/13/20 09:00 05/16/20 10:27 Synthroid PO 150 mcg QAM HOWARD Administration Lorazepam 1 mg 05/14/20 12:00 05/16/20 12:56 Ativan IM Not Given 1200,2359 HOWARD Ondansetron HCl 4 mg 05/13/20 15:18 05/13/20 15:26 Zofran IVP 4 mg Q6H PRN Administration Nausea/Vomiting Risperidone 0.25 mg 05/12/20 21:00 05/16/20 09:58 Risperidone PO Not Given BID HOWARD Sertraline HCl 100 mg 05/13/20 09:00 05/16/20 09:58 Zoloft PO Not Given DAILY HOWARD - Exam General Appearance: awake alert General - other findings: Morbid obesity Eye: PERRL ENT: moist mucosa Neck: supple Heart: RRR, normal peripheral pulses Respiratory: CTAB Gastrointestinal: soft, distended Skin: no rashes Psychiatric: normal affect, normal behavior Hosp A/P (1) Drug overdose Code(s): T50.901A - POISONING BY UNSP DRUG/MEDS/BIOL SUBST, ACCIDENTAL, INIT Status: Acute (2) Aspiration into airway Code(s): T17.908A - UNSP FB IN RESP TRACT, PART UNSP CAUSING OTH INJURY, INIT Status: Acute (3) Seizure Code(s): R56.9 - UNSPECIFIED CONVULSIONS Status: Acute (4) Acute respiratory failure with hypoxia Code(s): J96.01 - ACUTE RESPIRATORY FAILURE WITH HYPOXIA Status: Resolved (5) Hyponatremia Code(s): E87.1 - HYPO-OSMOLALITY AND HYPONATREMIA Status: Resolved - Plan Pt reportedly had episodes of extrapyramidal symptoms, add PRN IM Cogentin. Continue IV Zosyn for aspiration. Agitation improved. Hyponatremia resolved.
[2020-05-16] MEDS: Amoxicillin/Potassium Clav 500 MG TAB PO SCH (21:24)
[2020-05-17] MEDS: Bupropion 150 MG XL TAB PO SCH (09:25)
[2020-05-17] MEDS: Enoxaparin Sodium 40 MG/0.4 ML SYRINGE SC SCH (09:25)
[2020-05-17] MEDS: Levothyroxine 150 MCG TAB PO SCH (09:25)
[2020-05-17] MEDS: Amoxicillin/Potassium Clav 500 MG TAB PO SCH ×2 (09:25→21:01)
[2020-05-17] MEDS: Famotidine/PF 20 mg/2ml Vial SLOW IVP SCH (09:25)
[2020-05-17] MEDS: lamoTRIgine 100 MG TAB PO SCH ×2 (09:26→21:00)
[2020-05-17] MEDS: hydrOXYzine 25 MG TAB PO SCH ×3 (09:26→21:01)
[2020-05-17] MEDS: risperiDONE 0.25 MG TAB PO SCH (09:27)
[2020-05-17] MEDS: Sodium Chloride 0.9% 1,000 ML IV SCH (09:27)
[2020-05-17 10:31] LABS: #Basophils 0.1 thou/uL (0.0-0.2); #Eosinphils 0.3 thou/uL (0.0-0.7); #Monocytes 0.8 thou/uL (0.11-0.59); #Neutrophils 7.3 thou/uL (1.40-6.50); %Basophils 0.9 % (0.0-1.0); %Eosinophils 2.5 % (0.0-10.0); %Lymphocytes 19.3 % (28.0-48.0); %Monocytes 7.9 % (0.0-4.0); %Neutrophils 69.4 % (31.0-61.0); Hemoglobin 10.6 g/dL (12.0-16.0); Mean Corpuscular Hemoglobin 27.8 pg (25.0-35.0); Mean Corpuscular Volume 86.7 fL (78.0-98.0); Mean Platelet Volume 6.4 fL (7.4-10.4); Platelet Count 441 thou/uL (130-400); RBC Distribution Width 13.1 % (11.5-14.5); White Blood Cell (WBC) Count 10.5 thou/uL (4.8-10.8)
--- NOTE | 2020-05-17 10:52 | PRG ---
DATE OF SERVICE: SUBJECTIVE: This morning, she is less encephalopathic, less agitated. OBJECTIVE: VITAL SIGNS: Temperature 98, pulse 105, respirations 17, sats 90% on room air, blood pressure 106/61. CHEST: No wheezing or crackles. CARDIAC: Normal S1 and S2. No gallops. ABDOMEN: No masses. LABORATORY DATA: Unremarkable. ASSESSMENT AND PLAN: Remains lethargic but arousable. Antibiotics empirically for her right upper lung atelectatic changes. Eventually placement. We will follow. Job ID: [id number]
[2020-05-17 10:54] LABS: Anion Gap 11 mmol/L (10-20); BUN (Urea Nitrogen) Less than 4 mg/dL (7.0-18.7); Calc. Creatinine Clearance 318 mL/min (70-130); Carbon Dioxide 24 mmol/L (22-29); Chloride 107 mmol/L (98-107); Estimated GFR-MDRD Greater than 90; Glucose 108 mg/dL (70-105); Sodium 139 mmol/L (136-145)
[2020-05-17 11:03] LABS: Potassium 2.9 mmol/L (3.5-5.1)
[2020-05-17] MEDS: Potassium Chloride 20 MEQ TAB PO SCH ×2 (12:08→16:48)
--- NOTE | 2020-05-17 15:48 | PDOC.HOSPP ---
- Subjective Encounter Date: 05/17/20 Encounter Time: 07:40 Subjective: Pt seen for followup re: drug overdose. Sleepy but arousable, not answering questions, could not complete ROS. - Objective Vital Signs & Weight: Vital Signs (12 hours) Temp Pulse Pulse Pulse Resp BP BP 05/17/20 14:02 117 H 108 H 129/72 134/65 05/17/20 13:07 87 20 05/17/20 11:30 98.9 F 98 17 05/17/20 08:00 05/17/20 07:34 97.8 F 105 H 17 05/17/20 07:07 05/17/20 07:04 85 20 BP Pulse Ox 05/17/20 14:02 05/17/20 13:07 95 05/17/20 11:30 131/76 93 L 05/17/20 08:00 95 05/17/20 07:34 106/61 95 05/17/20 07:07 94 L 05/17/20 07:04 94 L Weight Admit Weight 289 lb 3.944 oz Weight 292 lb 4.8 oz Most Recent Monitor Data Heart Rate from ECG 101 NIBP 166/94 NIBP BP-Mean 118 Respiration from ECG 22 SpO2 98 I&O: 05/16/20 05/17/20 05/18/20 06:59 06:59 06:59 Intake Total 1100 1080 Output Total 2550 1950 950 Balance -1450 -870 -950 Result Diagrams: 05/17/20 10:23 05/17/20 10:23 Additional Labs: Labs and MARs reviewed by me EKG Reviewed by me: Yes (Tele: NSR) Hospitalist ROS - Review of Systems ROS unobtainable: due to mental status - Medication Medications: Active Medications Generic Name Dose Route Start Last Admin Trade Name Freq PRN Reason Stop Dose Admin Albuterol/Ipratropium 3 ml 05/16/20 13:00 05/17/20 13:07 Duoneb EZPAP 3 ml [id number] HOWARD Administration Amoxicillin/Clavulanate Potassium 500 mg 05/16/20 21:00 05/17/20 09:25 Augmentin PO 05/23/20 21:01 500 mg Q12HR HOWARD Administration Bupropion HCl 300 mg 05/13/20 09:00 05/17/20 09:25 Wellbutrin Xl PO 300 mg QAM HOWARD Administration Enoxaparin Sodium 40 mg 05/12/20 09:00 05/17/20 09:25 Lovenox SC 40 mg 0900 HOWARD Administration Hydroxyzine HCl 25 mg 05/16/20 09:00 05/17/20 09:26 Atarax PO 25 mg TID HOWARD Administration Lamotrigine 150 mg 05/13/20 09:00 05/17/20 09:26 Lamictal PO 150 mg BID HOWARD Administration Ondansetron HCl 4 mg 05/13/20 15:18 05/13/20 15:26 Zofran IVP 4 mg Q6H PRN Administration Nausea/Vomiting Potassium Chloride 40 meq 05/17/20 12:00 05/17/20 12:08 K-Dur PO 05/17/20 16:01 40 meq Q4H HOWARD Administration Sertraline HCl 100 mg 05/13/20 09:00 05/17/20 09:25 Zoloft PO 100 mg DAILY HOWARD Administration - Exam General - other findings: Morbid obesity Eye: anicteric sclera ENT: moist mucosa Neck: supple Heart: no gallops, no rubs Respiratory: CTAB Gastrointestinal: soft, non-tender Skin: no rashes Psychiatric: normal affect, normal behavior Hosp A/P (1) Drug overdose Code(s): T50.901A - POISONING BY UNSP DRUG/MEDS/BIOL SUBST, ACCIDENTAL, INIT Status: Acute (2) Aspiration into airway Code(s): T17.908A - UNSP FB IN RESP TRACT, PART UNSP CAUSING OTH INJURY, INIT Status: Acute (3) Seizure Code(s): R56.9 - UNSPECIFIED CONVULSIONS Status: Acute (4) Acute respiratory failure with hypoxia Code(s): J96.01 - ACUTE RESPIRATORY FAILURE WITH HYPOXIA Status: Resolved (5) Hyponatremia Code(s): E87.1 - HYPO-OSMOLALITY AND HYPONATREMIA Status: Resolved - Plan Pt switched to Augmentin Agitation improved. Ambulate pt May need inpatient psych
[2020-05-17] MEDS ORDERED: risperiDONE 0.25 MG TAB PO SCH (21:00)
[2020-05-17] MEDS: Famotidine 20 MG TAB PO SCH (23:22)
[2020-05-18 04:32] LABS: #Basophils 0.1 thou/uL (0.0-0.2); #Eosinphils 0.3 thou/uL (0.0-0.7); #Lymphocytes 2.9 thou/uL (1.20-3.40); #Monocytes 0.7 thou/uL (0.11-0.59); #Neutrophils 4.6 thou/uL (1.40-6.50); %Basophils 0.9 % (0.0-1.0); %Eosinophils 3.3 % (0.0-10.0); %Lymphocytes 33.4 % (28.0-48.0); %Monocytes 8.4 % (0.0-4.0); Hemoglobin 10.3 g/dL (12.0-16.0); Mean Corpuscular HGB CONC 32.6 g/dL (32.0-36.0); Mean Corpuscular Volume 85.7 fL (78.0-98.0); Mean Platelet Volume 6.8 fL (7.4-10.4); Platelet Count 461 thou/uL (130-400); RBC Distribution Width 13.4 % (11.5-14.5); Red Blood Cell (RBC) Count 3.67 mill/uL (4.00-5.20); White Blood Cell (WBC) Count 8.6 thou/uL (4.8-10.8)
[2020-05-18 04:45] LABS: Anion Gap 13 mmol/L (10-20); BUN (Urea Nitrogen) Less than 4 mg/dL (7.0-18.7); Calc. Creatinine Clearance 285 mL/min (70-130); Carbon Dioxide 25 mmol/L (22-29); Chloride 107 mmol/L (98-107); Estimated GFR-MDRD Greater than 90; Glucose 81 mg/dL (70-105); Sodium 142 mmol/L (136-145)
[2020-05-18 04:50] LABS: Potassium 2.9 mmol/L (3.5-5.1)
[2020-05-18] MEDS ORDERED: Potassium Chloride 20 MEQ TAB PO SCH ×2 (05:15→11:00)
[2020-05-18] MEDS ORDERED: Levothyroxine 150 MCG TAB PO SCH (06:00)
[2020-05-18] MEDS: Amoxicillin/Potassium Clav 500 MG TAB PO SCH (09:09)
[2020-05-18] MEDS: Bupropion 150 MG XL TAB PO SCH (09:09)
[2020-05-18] MEDS: Famotidine 20 MG TAB PO SCH (09:10)
[2020-05-18] MEDS: Enoxaparin Sodium 40 MG/0.4 ML SYRINGE SC SCH (09:10)
[2020-05-18] MEDS: lamoTRIgine 100 MG TAB PO SCH (09:10)
[2020-05-18] MEDS: hydrOXYzine 25 MG TAB PO SCH ×2 (09:13→15:52)
--- NOTE | 2020-05-18 10:29 | PRG ---
DATE OF SERVICE: 05/18/2020 SUBJECTIVE: Julianna Carpio is still lethargic, but arousable. OBJECTIVE: VITAL SIGNS: Temperature 98, pulse 103, respirations 17, saturations are 90% on room air, blood pressure 131/87. CHEST: No wheezing or crackles. CARDIAC: Normal S1 and S2. No gallops. ABDOMEN: No masses. ASSESSMENT: 1. Right upper lung atelectasis, improved. 2. Bipolar. 3. Schizophrenia. 4. Respiratory failure. 5. Presumed overdose. PLAN: She can be transferred out of the hospital any time. Medically, she is stable. I will discontinue the Risperdal, it is still making her sleepy. She needs inpatient psych treatment. Job ID: [id number]
[2020-05-18 12:51] LABS: Potassium 3.7 mmol/L (3.5-5.1)
[2020-05-18 13:57] VITALS: BMI 47.9
[2020-05-18 15:25] VITALS: BP 123/79; TEMP 98.4
--- NOTE | 2020-05-19 03:36 | DIS ---
DATE OF ADMISSION: 05/12/2020 DATE OF DISCHARGE: 05/18/2020 PRIMARY CARE PROVIDER: Temi Mann MD DISCHARGE DIAGNOSES: 1. Drug overdose. 2. Acute hypoxic and hypercapnic respiratory failure. 3. Hypokalemia. 4. Hyponatremia. 5. Episodes of agitation. 6. Right upper lobe atelectasis. 7. Right upper lobe pneumonia. CONDITION OF THE PATIENT ON THE DAY OF DISCHARGE: Stable. I assessed Ms. Carpio on the day of discharge. She denies any chest pain or shortness of breath. Vital signs are stable. S1 and S2 are heard, regular. Lungs are clear to auscultation bilaterally. CONSULTATIONS DURING THIS HOSPITALIZATION: Pulmonary and Critical Care Medicine, Dr. Forrest. POST ACUTE CARE FOLLOWUP: With primary care provider following discharge. DISCHARGE MEDICATIONS: 1. Bupropion 300 mg daily. 2. Hydroxyzine 25 mg 3 times a day. 3. Lamictal 150 mg 2 times a day. 4. Levothyroxine 150 mcg daily. 5. Sertraline 100 mg daily. 6. Augmentin 500 mg 2 times a day for six more days. HOSPITAL COURSE: Ms. Carpio is a pleasant 19-year-old lady, who was admitted to [facility] on May 12, 2020 for acute respiratory failure, following seizures after drug overdose with Lamictal and bupropion. She was intubated and mechanically ventilated. She was admitted to critical care unit. She was extubated on May 13, 2020. She continued to have on and off episodes of agitation and was treated with sedatives. She improved clinically. She has been evaluated by [facility]. She is being discharged to [facility] for inpatient psychiatric treatment. LABORATORY DATA: On the day of discharge, she has sodium 142, potassium 3.7, and creatinine 0.66. White count 8600, hemoglobin 10.3, and platelet count 461,000. DISCHARGE DESTINATION: [facility]. ACTIVITY: No restrictions. DIET: Regular. TOTAL AMOUNT OF TIME SPENT COORDINATING THIS DISCHARGE: 25 minutes. Many thanks for allowing me to participate in your patient's care. Please feel free to contact me with any questions or concerns. Job ID: [id number]
--- NOTE | 2020-05-21 15:17 | EKG ---
Test Reason : Blood Pressure : / mmHG Vent. Rate : 088 BPM Atrial Rate : 088 BPM P-R Int : 202 ms QRS Dur : 104 ms QT Int : 410 ms P-R-T Axes : 031 034 049 degrees QTc Int : 496 ms Normal sinus rhythm Prolonged QT Abnormal ECG Confirmed by SHMUEL RIVERA M.D. ([id number]), editorial specialist FAM ARGUETA ([id number]) on 05/21/2020 3:16:44 PM Referred By: Confirmed By:SHMUEL RIVERA M.D.
== END 2020-05-18 16:38 | DRG 917 ==
LOC: ERS 03:08 → CCU 05:00 → IMCU/EMU 05-15 10:06 → 2NO 05-16 21:59
PROVIDERS: ADMIT Internal Medicine; ATTEND Internal Medicine
PROC: 0BH17EZ Insertion of Endotracheal Airway into Trachea, Via Natural or Artificial Opening (ICD-10-PCS; principal; 2020-05-12)
PROC: 5A1935Z Respiratory Ventilation, Less than 24 Consecutive Hours (ICD-10-PCS; 2020-05-12)
DX: T42.6X2A Poisoning by other antiepileptic and sedative-hypnotic drugs, intentional self-harm, initial encounter (principal); J96.01 Acute respiratory failure with hypoxia; J69.0 Pneumonitis due to inhalation of food and vomit; J96.02 Acute respiratory failure with hypercapnia; G93.40 Encephalopathy, unspecified; J98.11 Atelectasis; E87.1 Hypo-osmolality and hyponatremia; Z68.42 Body mass index [BMI] 45.0-49.9, adult; R40.2432 Glasgow coma scale score 3-8, at arrival to emergency department; F31.9 Bipolar disorder, unspecified; G40.909 Epilepsy, unspecified, not intractable, without status epilepticus; R11.2 Nausea with vomiting, unspecified; F20.9 Schizophrenia, unspecified; E66.01 Morbid (severe) obesity due to excess calories; E03.9 Hypothyroidism, unspecified; Z98.51 Tubal ligation status
CPT/HCPCS: 36415; 51702; 71045; 71250; 80048; 80053; 80307; 82550; 82805; 83605; 84484; 84703; 85007; 85025; 85027; 87040; 93005; 94002; 94003; 94640; 96365; 96366; 96367; 96375; 96376; J1630; J1650; J2060; J2405; J2543; J2704; J3010; J3475; J3486; J3490; J7620; S0028